=== PATIENT | female | born 1935 ===

== ENCOUNTER → 2017-11-11 18:13 | Outpatient (CLI) | payer OTHER | END | disposition home or self-care (01) | LOC: LAB 18:13 | DX: I10 Essential (primary) hypertension (principal); K76.1 Chronic passive congestion of liver; I48.1 Persistent atrial fibrillation; I50.21 Acute systolic (congestive) heart failure ==

== ENCOUNTER 2018-11-20 10:03 | Emergency (ER) | payer OTHER ==
[~2018-11-20] VITALS: Ht 149.9 cm; Wt 59.0 kg
[2018-11-20] MEDS ORDERED: LOSARTAN POTASS25 MG (10:22)
[2018-11-20] MEDS ORDERED: NAMENDA5 MG (10:22)
[2018-11-20] MEDS ORDERED: EXELON1 EAC2 (10:23)
[2018-11-20] MEDS ORDERED: ASPIR 8181 MG (10:23)
== END 2018-11-20 21:36 | disposition home or self-care (01) ==
LOC: ER 10:03
DX: J09.X2 Influenza due to identified novel influenza A virus with other respiratory manifestations (principal); R55 Syncope and collapse

== ENCOUNTER 2021-02-19 15:48 | Emergency (ER) | payer OTHER ==
[~2021-02-19] VITALS: Ht 160 cm; Wt 59.0 kg
[~2021-02-19 15:48] MED LIST: ASPIR 8181 MG; EXELON1 EAC2; LOSARTAN POTASS25 MG; NAMENDA5 MG
[2021-02-19] MEDS ORDERED: CARBIDOPA-LEVO1 EA10 (16:13)
[2021-02-19] MEDS ORDERED: FLUOXETINE HCL20 MG (16:13)
[2021-02-19] MEDS ORDERED: LASIX20 MG (16:14)
[2021-02-19] MEDS ORDERED: CALCIUM500 M1 (16:14)
[2021-02-19] MEDS ORDERED: ZOCOR20 MG (16:15)
[2021-02-19] MEDS ORDERED: RESTORIL15 M1 (16:15)
[2021-02-19] MEDS ORDERED: VALPROIC ACID250 MG (16:16)
[2021-02-19] MEDS ORDERED: BACTRIM DS TAB1 EACH PO (22:30)
== END 2021-02-19 22:27 | disposition home or self-care (01) ==
LOC: ER 15:48
DX: N39.0 Urinary tract infection, site not specified (principal); B96.29 Other Escherichia coli [E. coli] as the cause of diseases classified elsewhere; R41.0 Disorientation, unspecified; R53.1 Weakness